=== PATIENT | male | born 1960 | race Caucasian/White ===

== ENCOUNTER 2024-03-30 11:39 | Emergency (ER) | payer SELFPAY ==
[2024-03-30 12:10] VITALS: BP 176/89; PULSE 67; RESP 17; TEMP 36.6; O2SAT 95; BMI 25.1
--- NOTE | 2024-03-30 12:14 | ECG_ITS ---
[facility]: 2024-03[facility]30 Pat Name: Yared Little Department: Room: Gender: Male Shelter Monitor: : 1960 Requested By: Markus Evans Order Number: [id number] Umair MD: Wayne Watkins M.D. 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 [id number]
--- NOTE | 2024-03-30 12:19 | W.ED.GENADLT ---
HPI - General Adult General: Chief complaint: General Medical Stated complaint: high b/p Time Seen by Provider: 03/30/24 11:43 Source: patient and family Mode of arrival: ambulatory Limitations: no limitations History of Present Illness: Patient is a nice 63-year-old male with no known past medical history (mainly because he does not have a primary care provider and has not went to the doctor in years ) here with complaints of high blood pressure. He was reportedly seen at the urgent care approximately a week ago for URI-like symptoms. His blood pressure during that visit was 224/112. He was advised to come to the emergency department then but patient declined. He and his significant other state his blood pressure has been high for years . They state they do check his blood pressure at home and it is often over 200s systolics. Patient states he has not had any interest in blood pressure medications but states today I think it is time . They did schedule an appointment for a primary care provider but this is not until May. Patient has no physical symptoms at today's visit apart from continued cough/congestion. He was around his significant other who was sick. He finished a round of azithromycin. Patient denies chest pain or severe headache. He is an everyday smoker. Onset (ago): year(s) Relieving factors: none Exacerbating factors: none Associated symptoms: Reports no associated symptoms; Deny chest pain, confusion, dyspnea, headache(s), malaise, nausea, palpitations, syncope or vomiting Treatments prior to arrival: none Related Data Previous Rx's Medication Instructions Recorded lisinopril 10 mg tablet 10 mg PO DAILY #30 tabs 03/30/24 Allergies Allergy/AdvReac Type Severity Reaction Status Date / Time No Known Allergies Allergy Verified 03/30/24 12:15 Review of Systems Const: Denies: fever(s), chills, body aches, fatigue or malaise Card: Denies: chest pain, palpitations, edema, syncope or pre-syncope Resp: Reports: non-productive cough; Denies: dyspnea or wheezing GI: Denies: abdominal pain, nausea or vomiting Musc: Denies: neck pain or back pain Neuro: Denies: headache(s), dizziness, confusion or behavioral changes PFSH ED PFSH: Social History Smoking and tobacco/nicotine status: never used tobacco/nicotine Alcohol intake: current Alcohol intake frequency: holidays/special occasions only Substance/Drug Use: never Physical Exam Const: COMMON NORMALS: no acute distress, average body habitus, patient oriented x3, no limitations, alert and well nourished GENERAL APPEARANCE: cooperative ORIENTATION/CONSCIOUSNESS: Yes awake, Yes oriented to person, Yes oriented to place and Yes oriented to time HENMT: COMMON NORMALS: normocephalic and atraumatic HEAD & SCALP: normocephalic and atraumatic Neck/C-Spine: COMMON NORMALS: full ROM, no lymphadenopathy, supple and no meningeal signs Chest: COMMONS NORMALS: normal inspection of the chest Resp: COMMON NORMALS: normal respiratory effort and clear to auscultation bilaterally AUSCULTATION: clear to auscultation bilaterally Cardio: COMMON NORMALS: regular rate and regular rhythm RATE: regular rate RHYTHM: regular rhythm GI: COMMON NORMALS: Normal to inspection, nondistended, normoactive bowel sounds present, Soft to palpation, non-tender, No hepatosplenomegaly present and no masses PALPATION: Yes Soft to palpation and Yes No hepatosplenomegaly present : COMMON NORMALS: Yes no CVA tenderness BLADDER/KIDNEY EXAM: Yes no CVA tenderness Back/Pelvis: COMMON NORMALS: no CVA tenderness and thoracic and lumbar spine normal to inspection Extremity: COMMON NORMALS: normal to inspection, no clubbing, cyanosis or edema, no calf tenderness and no pedal edema GENERAL: Yes normal exam except as noted Neuro: JOHNATHON COMA SCALE: document GCS findings Johnathon coma scale eye opening: Spontaneous Johnathon coma scale verbal response: Orientated Johnathon coma scale motor response: Obey commands [place] coma scale total score: 15 COMMON NORMALS: patient oriented x3, CN's II-XII intact bilaterally, moves all extremities, no focal motor deficits, no sensory deficits noted and gait normal SENSORIUM/ORIENTATION: Yes alert, Yes oriented to person, Yes oriented to place and Yes oriented to time MENINGEAL SIGNS: Yes no meningeal signs Skin: COMMON NORMALS: no rashes or lesions noted GENERAL SKIN EXAM: no rashes or lesions noted Course Vital Signs: Vital signs: Vital Signs Temperature 97.9 F 03/30/24 12:10 Pulse Rate 67 03/30/24 12:10 Respiratory Rate 17 03/30/24 12:10 Blood Pressure 176/89 03/30/24 12:10 Pulse Oximetry 95 03/30/24 12:10 Oxygen Delivery Me thod Room Air 03/30/24 12:10 MDM - General Adult Medical Decision Making Patient here due to chronic hypertension. He is asymptomatic currently. He is agreeable to start antihypertensive medication at this time. Discussed starting low and going slow given his chronicity of significantly elevated blood pressure. There is no need for emergent lowering today. EKG performed in triage was unremarkable. CXR today showing chronic emphysema. Patient will be started on 10 mg lisinopril and we will taper up based on blood pressure log readings. I will try to get patient a sooner appointment with primary care. Return ED precautions given. Medical Records I reviewed the patient's medical records. Lab Data Radiology Impressions Chest X-Ray 03/30/24 12:25 IMPRESSION: Chronic emphysema with no pneumonia. Ectatic thoracic aorta. All radiology interpretation(s) finalized by discharge Discharge Plan Discharge Patient Disposition: Home Clinical Impression: Chronic hypertension Condition: Stable Prescriptions: New lisinopril 10 mg tablet 10 mg PO DAILY Qty: 30 1RF No Action azithromycin 500 mg tablet 500 mg PO DAILY 5 Days Qty: 5 0RF Discharge Orders: Discharge ED (Routine); Ordered 03/30/24 Ordered By: Stacie Smith Patient Instructions: Hypertension (ED) Activity Restrictions/Additional Instructions: As we discussed, begin taking 10mg of lisinopril daily. Continue a blood pressure log. If after 2 weeks of this medication, blood pressures are still over 150/90 you may increase to 20mg daily. I will place a case management referral to try to get you a sooner appointment with primary care so they can go over your log and adjust blood pressure medications based on these. 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
--- NOTE | 2024-03-30 12:25 | XR_ITS ---
WS: [id number] PORTABLE CHEST HISTORY: cough/congestion COMPARISON: None available. Marked pulmonary hyperinflation. Benign granuloma RIGHT upper lobe. No consolidation. No mass. No ple ural effusion or pneumothorax. Cardiac size: Normal. Mediastinum/Aorta: Ectatic thoracic aorta. No osseous abnormality seen. XR/XR chest 1V portable [id number] IMPRESSION: Chronic emphysema with no pneumonia. Ectatic thoracic aorta.
[2024-03-30 13:07] VITALS: BP 141/99; PULSE 60; O2SAT 91
[2024-03-30 13:14] VITALS: BP 141/99; PULSE 60; O2SAT 91
--- NOTE | 2024-03-31 09:51 | DCPLANNER ---
Message sent to Clinics to get established with PCP.
== END 2024-03-30 13:14 | disposition home or self-care (01) ==
PROVIDERS: Emergency Provider Physician Assistant
DX: I10 Essential (primary) hypertension (principal)
CPT/HCPCS: 71045; 93005; 99284

== ENCOUNTER → 2024-07-07 14:54 | Outpatient (BNVA) | payer BC, SELFPAY | PROVIDERS: PCP Family Medicine; Visit Provider Family Medicine | DX: Z13.6 Encounter for screening for cardiovascular disorders (principal); Z12.5 Encounter for screening for malignant neoplasm of prostate; I10 Essential (primary) hypertension | CPT/HCPCS: 85025 ==

== ENCOUNTER → 2024-07-30 14:14 | Outpatient (BNVA) | payer BC, SELFPAY | PROVIDERS: PCP Family Medicine; Visit Provider Family Medicine | DX: I10 Essential (primary) hypertension (principal) | CPT/HCPCS: 85025 ==

== ENCOUNTER → 2024-08-17 15:26 | Outpatient (BNVA) | payer BC, SELFPAY | PROVIDERS: PCP Family Medicine; Visit Provider Family Medicine | DX: Z13.6 Encounter for screening for cardiovascular disorders (principal); Z12.5 Encounter for screening for malignant neoplasm of prostate | CPT/HCPCS: 80053; 80061; 84153; 84439; 84443; 85025 ==